=== PATIENT | female | born 1960 | race Caucasian/White ===

== ENCOUNTER → 2017-02-02 | Outpatient (CLI) | payer MEDICAID ==
[~2017-02-02] MED LIST: ACETAMIN W/CODE1 TAB PO; AMOXICILLIN 50500 MG PO; AMOXICILLIN500 M2 PO; B12 INJ.,1000 MCG/M SL; BACTRIM DS 8001 TA1 PO; BUSPIRONE5 MG PO; CEFDINIR300 MG PO; CIPRO 500MG TA500 MG PO; CLARITIN 10MG T10 MG PO; DICLOFENAC SODI75 M3 PO; EFFEXOR75 MG PO; ENJUVIA1.25 MG PO; ESCITALOPRAM10 M1 PO; ESTRADIOL1 EACH TD; ESTRADIOL2 MG PO; FLUOXETINE20 M2 PO; HYDROCODONE-APA1 TA1 PO; HYDROCODONE1 TABLET PO; INDERAL 40MG. T40 MG PO; KEFLEX 500MG.500 MG PO; MEDROL 4MG. DOSE4 MG PO; NITROFURANTOIN100 M4 PO; NITROFURANTOIN100 M6 PO; Nitrofurantoin100 MG PO; OMEPRAZOLE40 MG PO; PANTOPRAZOLE SO40 M1 PO; PENICILLIN-VK500 MG PO; PHENERGAN 25MG.25 M1 PO; PHENERGAN VC +120 ML PO; PREMARIN1.25 MG PO; PROPRANOLOL HCL20 M1 PO; TRAMADOL 50MG T50 MG PO; Tramadol HCl50 MG PO; ZOFRAN4 MG PO; [UNRECOGNIZED DRUG - OTHER] PO
--- NOTE | 2017-02-02 12:30 | RADIOLOGY REPORT PS360 ---
HIP RT 2-3V W/PELVIS IF PERFOR HISTORY: RT HIP PAIN,LOWER BACK PAIN ORDERING PHYSICIAN: Belle IVERSON PATIENT AGE: 56 years COMPARISON: None FINDINGS: No fracture or dislocation is evident. No significant degenerative change. No lytic or blastic change. Unremarkable soft tissues IMPRESSION: Negative right hip
--- NOTE | 2017-02-02 12:40 | RADIOLOGY REPORT PS360 ---
EXAM: LUMBAR SPINE 5 VIEWS HISTORY: RT HIP PAIN,LOWER BACK PAIN ORDERING PHYSICIAN: Belle IVERSON PATIENT AGE: 56 years COMPARISON: None FINDINGS: Mild levoscoliosis. There is lumbarization of S1. No fracture or dislocation. No lytic or blastic. Facet arthritic changes are present at L5-S1. Mild degenerative disc disease L5-S1. Endplate osteophytes are present at L3-L4. IMPRESSION: 1. Mild levoscoliosis. 2. Facet arthritic change and degenerative disc disease at L5-S1
== END ==
LOC: RAD 11:44
DX: M54.5 Low back pain (principal); M25.551 Pain in right hip

== ENCOUNTER → 2017-07-12 | Outpatient (CLI) | payer MEDICAID ==
[~2017-07-12] MED LIST changes: +ACETAMINOPHEN-H1 TA2 PO; +CYCLOBENZAPRINE10 M1 OR; +GABAPENTIN100 MG PO; +MELOXICAM7.5 MG PO; +POTASSIUM CHLO20 ME2 PO; +TOLTERODINE TART2 MG PO
--- NOTE | 2017-07-12 17:01 | RADIOLOGY REPORT PS360 ---
CERVICAL SPINE 4 OR 5 VIEWS HISTORY: CERVICALGIA right-sided neck pain Patient Age: 57 years: Female Ordering Physician: Belle IVERSON TECHNIQUE: Five-view cervical spine series. COMPARISON :Plain film cervical spine December 2009 FINDINGS No fracture nor subluxation evident. Mild disc space narrowing C4/5 with anterior marginal osteophytes most notable at this level. Mild posterior hypertrophic ridging yielding minor right foraminal encroachment this level. C5/6. Mild posterior hypertrophic ridging most evident towards right foramen with mild right foraminal encroachment. . C1-C2 relationships appear normal. Facets appear intact and satisfactory. Additional disease noted. Prevertebral soft tissues normal. Mild hypertrophic degenerative facet changes suggested at C5-C6 on the right IMPRESSION: Early degenerative changes cervical spine as noted in text.. . Suspect early degenerative disc changes & minor spondylosis at C 4/5 & minimal C5/6. Minor Spurring yields minor foraminal encroachment on right at each of these levels.. Scant progression minor spondylosis C4/5 since 2009
== END ==
LOC: RAD 15:17
DX: M54.2 Cervicalgia (principal)